=== PATIENT | female | born 1980 | race Caucasian/White ===

== ENCOUNTER 2019-03-28 08:16 | Emergency (ER) | payer MEDICAID ==
[~2019-03-28] VITALS: Ht 154.9 cm; Wt 113.4 kg
[2019-03-28 08:16] VITALS: BP_SYST 147
--- NOTE | 2019-03-28 08:16 | NUR ---
BROUGHT BACK TO BED #6 AND TRIAGED. REPORT GIVEN TO KALA
--- NOTE | 2019-03-28 08:34 | NUR ---
ER Dr. hebert at bedside examining patient.
--- NOTE | 2019-03-28 08:44 | NUR ---
PATIENT CAME IN COMPLAINING OF PAIN TO RIGHT INDEX FINGER. PATIENT STATES IT STARTED ON SUNDAY AND DOESNT KNOW IF SHE HIT IT AT WORK. PATIENT IN 02/03 THROBBING. PATIENT STATES SHE HASNT TAKENT ANYTHING FOR PAIN. PATIENT'S FINGER HAS SOME DISCOLORATION TO IT. PATIENT NOT COMPLAINING OF SOB, NAUSEA, OR VOMITING. PAITENT ALERT AND ORIENTED X4.
--- NOTE | 2019-03-28 08:49 | NUR ---
PATIENT GETTING X RAY IN BED.
--- NOTE | 2019-03-28 08:53 | NUR ---
PATIENT GETTING LABS DRAWN IN BED.
[2019-03-28 09:07] LABS: BASOPHILS # (AUTO) 0.1 K/uL (0.0-0.2); EOSINOPHILS # (AUTO) 0.4 K/uL (0.0-0.4); EOSINOPHILS % (AUTO) 3.5 % (0.0-4.0); HEMATOCRIT 40.6 % (36-48); HEMOGLOBIN 13.4 g/dL (12.0-16.0); LYMPHOCYTES # (AUTO) 3.4 K/uL (1.0-5.5); LYMPHOCYTES % (AUTO) 34.2 % (20.5-51.5); MEAN CORPUSCULAR HEMOGLOBIN 30 pg (27-31); MEAN CORPUSCULAR HGB CONC 33 % (32-36); MEAN CORPUSCULAR VOLUME 90 fL (79.0-98.0); MONOCYTES # (AUTO) 0.4 K/uL (0.0-1.0); MONOCYTES % (AUTO) 4.2 % (1.7-9.3); NEUTROPHILS # (AUTO) 5.8 K/uL (1.8-7.7); NEUTROPHILS % (AUTO) 57.1 % (40.0-70.0); PLATELET COUNT (AUTO) 399 K/uL (130-430); RED BLOOD CELL COUNT(AUTO) 4.53 MIL/uL (4.2-6.2); RED CELL DISTRIBUTION WIDTH 13.5 % (9.0-15.0); WHITE BLOOD COUNT (AUTO) 10.1 K/uL (4.8-10.8)
[2019-03-28 09:09] LABS: CALCIUM 9.3 mg/dL (8.4-11.0); CREATININE 0.76 mg/dL (0.55-1.30); POTASSIUM 3.9 mmol/L (3.5-5.1)
[2019-03-28 09:13] LABS: INR 0.9 (0.8-1.2); PROTHROMBIN TIME 9.2 SECS (9.5-12.5)
[2019-03-28 09:14] LABS: ALBUMIN 3.3 g/dL (3.4-4.8); TOTAL BILIRUBIN 0.4 mg/dL (0.0-1.0)
[2019-03-28 11:03] VITALS: BP_SYST 142
--- NOTE | 2019-03-28 11:03 | NUR ---
Patient given written and verbal discharge instructions and verbalizes understanding. ER MD discussed with patient the results and treatment provided. Patient in stable condition. ID arm band removed. Rx of MORTIN given. Patient educated on pain management and to follow up with PMD. Pain Scale 2/10 TOLERABLE. Opportunity for questions provided and answered. Medication side effect fact sheet provided.
== END 2019-03-28 11:03 | disposition home or self-care (01) ==
LOC: SED 08:16
DX: S60.021A Contusion of right index finger without damage to nail, initial encounter (principal); X58.XXXA Exposure to other specified factors, initial encounter; Y93.89 Activity, other specified; Y92.89 Other specified places as the place of occurrence of the external cause; Y99.8 Other external cause status
CPT/HCPCS: 36415; 73140-TC; 80053; 81025; 84703; 85025; 85610-TC; 85730-TC; 99284

== ENCOUNTER 2021-07-26 09:33 | Emergency (ER) | payer MEDICAID, SELFPAY ==
[~2021-07-26] VITALS: Ht 157.5 cm; Wt 140.6 kg
--- NOTE | 2021-07-26 09:59 | NUR ---
PT COMES TO ER WITH C/O LEFT EAR PAIN X 2 DAYS WITH ASSOCIATED DIARRHEA FOR 3 DAYS, DENIES ANY NAUSEA/ABD PAIN/ PT IN NAD. RESP EVEN AND UNLABORED, ON RA @99%. DENIES ANY EAR DRAINAGE OR HEARING LOSS. NO FEVERS/CHILLS.
[2021-07-26 10:00] VITALS: BP_SYST 154
--- NOTE | 2021-07-26 10:07 | NUR ---
DR ESPINO IN ROOM FOR EXAM
[2021-07-26] MEDS ORDERED: PSEU30TA36 PO (10:16)
[2021-07-26] MEDS ORDERED: LOPE2CAP PO (10:16)
[2021-07-26] MEDS ORDERED: AMOX-520 PO (10:16)
[2021-07-26 10:30] VITALS: BP_SYST 154
--- NOTE | 2021-07-26 10:31 | NUR ---
Patient given written and verbal discharge instructions and verbalizes understanding. ER MD discussed with patient the results and treatment provided. Patient in stable condition. ID arm band removed. IV catheter removed intact and dressing applied, no active bleeding. Rx of AMOXICILLIN, LOPERAMIDE, PSEUDOPHEDRINE given. Patient educated on pain management and to follow up with PMD. Pain Scale . Opportunity for questions provided and answered. Medication side effect fact sheet provided.
== END 2021-07-26 10:29 | disposition home or self-care (01) ==
LOC: SED 09:33
DX: H66.92 Otitis media, unspecified, left ear (principal); Z79.899 Other long term (current) drug therapy
CPT/HCPCS: 99283